=== PATIENT | female | born 1965 | race Caucasian/White ===

== ENCOUNTER 2018-01-26 09:11 | Outpatient (CLI) | payer OTHER ==
[2018-01-26 17:35] LABS: BASOPHILS % (AUTO) 0.6 %; EOSINOPHILS # (AUTO) 0.1 10^3/uL (0.0-0.7); EOSINOPHILS % (AUTO) 1.5 %; HGB - HEMOGLOBIN 8.8 g/dL (12.0-16.0); LYMPHOCYTES # (AUTO) 1.6 10^3/uL (1.5-3.5); LYMPHOCYTES % (AUTO) 29.9 %; MEAN CORPUSCULAR HEMOGLOBIN 19.6 pg (27.0-31.0); MEAN CORPUSCULAR HGB CONC 29.4 g/dL (32.0-36.0); MEAN CORPUSCULAR VOLUME 66.8 fL (81.0-99.0); MEAN PLATELET VOLUME 8.3 fL (7.9-10.8); MONOCYTES # (AUTO) 0.5 10^3/uL (0.0-1.0); MONOCYTES % (AUTO) 8.9 %; NEUTROPHILS # (AUTO) 3.2 10^3/uL (1.5-6.6); NEUTROPHILS % (AUTO) 59.1 %; PLT - PLATELET COUNT 351 10^3/uL (130-450); RED BLOOD COUNT 4.46 10^6/uL (4.20-5.40); RED CELL DISTRIBUTION WIDTH 19.1 % (12.0-15.0); WHITE BLOOD COUNT 5.4 x10^3/uL (4.8-10.8)
[2018-01-26 17:47] LABS: ALBUMIN 3.8 g/dL (3.2-5.5); ALBUMIN/GLOBULIN RATIO 1.4 (1.0-2.2); ALKALINE PHOSPHATASE 54 IU/L (42-121); ALT ALANINE AMINOTRANSFERASE 16 IU/L (10-60); AST ASPARTATE AMINOTRANSFERASE 17 IU/L (10-42); BILIRUBIN,TOTAL 1.1 mg/dL (0.2-1.0); BUN - BLOOD UREA NITROGEN 15 mg/dL (6-20); CALCIUM 8.5 mg/dL (8.5-10.3); CARBON DIOXIDE - CO2 26 mmol/L (21-32); CHLORIDE 107 mmol/L (101-111); CREATININE 0.6 mg/dL (0.4-1.0); GFR - MDRD 105 (>89); GLUCOSE 91 mg/dL (70-100); SODIUM 137 mmol/L (135-145); TOTAL PROTEIN 6.6 g/dL (6.7-8.2)
[2018-01-26 19:47] LABS: PLATELET ESTIMATE, MANUAL NORMAL (130-450,000) (NORMAL); PLATELET MORPHOLOGY 1+ GIANT PLATELETS (NORMAL)
== END 2018-01-26 09:12 | disposition home or self-care (01) ==
LOC: LAB.F 09:11
PROVIDERS: ATTEND Physician Assistant Medical
DX: Z00.00 Encounter for general adult medical examination without abnormal findings (principal)
CPT/HCPCS: 36415; 80053; 84443; 85025

== ENCOUNTER 2018-02-01 11:59 | Outpatient (CLI) | payer OTHER ==
[2018-02-01 17:40] LABS: % IRON SATURATION 2 % (20-50); IRON 8 ug/dL (28-170); TOTAL IRON BINDING CAPACITY 447 ug/dL (250-450); TRANSFERRIN 319 mg/dL (192-382)
== END 2018-02-01 12:00 | disposition home or self-care (01) ==
LOC: LAB.F 11:59
PROVIDERS: ATTEND Family Medicine
DX: D64.9 Anemia, unspecified (principal)
CPT/HCPCS: 36415; 81599; 82728; 83021; 83540; 84466; 85014; 85018

== ENCOUNTER 2018-03-10 14:51 | Outpatient (CLI) | payer OTHER ==
[2018-03-10 18:02] LABS: BASOPHILS % (AUTO) 0.5 %; EOSINOPHILS # (AUTO) 0.1 10^3/uL (0.0-0.7); EOSINOPHILS % (AUTO) 1.3 %; LYMPHOCYTES # (AUTO) 2.1 10^3/uL (1.5-3.5); MEAN CORPUSCULAR HEMOGLOBIN 19.2 pg (27.0-31.0); MEAN CORPUSCULAR HGB CONC 29.9 g/dL (32.0-36.0); MEAN CORPUSCULAR VOLUME 64.5 fL (81.0-99.0); MEAN PLATELET VOLUME 8.8 fL (7.9-10.8); MEAN RETIC VALUE 98.9; MONOCYTES # (AUTO) 0.6 10^3/uL (0.0-1.0); MONOCYTES % (AUTO) 7.9 %; NEUTROPHILS # (AUTO) 5.4 10^3/uL (1.5-6.6); NEUTROPHILS % (AUTO) 65.3 %; PLT - PLATELET COUNT 336 10^3/uL (130-450); RED BLOOD COUNT 4.69 10^6/uL (4.20-5.40); RED CELL DISTRIBUTION WIDTH 17.3 % (12.0-15.0); WHITE BLOOD COUNT 8.2 x10^3/uL (4.8-10.8)
[2018-03-10 18:28] LABS: % IRON SATURATION 3 % (20-50); IRON 12 ug/dL (28-170); TOTAL IRON BINDING CAPACITY 437 ug/dL (250-450); TRANSFERRIN 312 mg/dL (192-382)
[2018-03-10 18:45] LABS: FERRITIN 2.9 ng/mL (11.0-306.8)
[2018-03-10 18:48] LABS: FOLATE 13.04 ng/mL (5.90 - >24.8)
== END 2018-03-10 14:52 | disposition home or self-care (01) ==
LOC: LAB.F 14:51
PROVIDERS: ATTEND Internal Medicine
DX: D64.9 Anemia, unspecified (principal)
CPT/HCPCS: 36415; 82607; 82728; 82746; 82747; 83540; 84466; 85025; 85044

== ENCOUNTER 2018-04-07 11:40 | Outpatient (CLI) | payer OTHER ==
[2018-04-07 18:19] LABS: HGB - HEMOGLOBIN 12.1 g/dL (12.0-16.0); MEAN CORPUSCULAR HEMOGLOBIN 23.6 pg (27.0-31.0); MEAN CORPUSCULAR HGB CONC 30.6 g/dL (32.0-36.0); MEAN CORPUSCULAR VOLUME 77.3 fL (81.0-99.0); MEAN PLATELET VOLUME 9.1 fL (7.9-10.8); RED BLOOD COUNT 5.12 10^6/uL (4.20-5.40); RED CELL DISTRIBUTION WIDTH 29.6 % (12.0-15.0); WHITE BLOOD COUNT 7.5 x10^3/uL (4.8-10.8)
[2018-04-08 16:43] LABS: MEAN RETIC VALUE 110.8; RED BLOOD COUNT 5.14 10^6/uL (4.20-5.40)
== END 2018-04-07 11:41 | disposition home or self-care (01) ==
LOC: LAB.F 11:40
PROVIDERS: ATTEND Internal Medicine
DX: D50.9 Iron deficiency anemia, unspecified (principal)
CPT/HCPCS: 36415; 82728; 85027; 85044

== ENCOUNTER 2018-05-06 11:24 | Outpatient (CLI) | payer OTHER ==
[2018-05-06 18:59] LABS: BASOPHILS % (AUTO) 0.5 %; EOSINOPHILS # (AUTO) 0.1 10^3/uL (0.0-0.7); EOSINOPHILS % (AUTO) 1.1 %; HGB - HEMOGLOBIN 13.6 g/dL (12.0-16.0); LYMPHOCYTES # (AUTO) 1.5 10^3/uL (1.5-3.5); LYMPHOCYTES % (AUTO) 23.3 %; MEAN CORPUSCULAR HEMOGLOBIN 26.9 pg (27.0-31.0); MEAN CORPUSCULAR VOLUME 84.2 fL (81.0-99.0); MEAN PLATELET VOLUME 8.4 fL (7.9-10.8); MONOCYTES # (AUTO) 0.4 10^3/uL (0.0-1.0); MONOCYTES % (AUTO) 6.8 %; NEUTROPHILS # (AUTO) 4.4 10^3/uL (1.5-6.6); NEUTROPHILS % (AUTO) 68.3 %; PLT - PLATELET COUNT 255 10^3/uL (130-450); RED BLOOD COUNT 5.07 10^6/uL (4.20-5.40); RED CELL DISTRIBUTION WIDTH 25.2 % (12.0-15.0); WHITE BLOOD COUNT 6.5 x10^3/uL (4.8-10.8)
[2018-05-06 19:25] LABS: PLATELET ESTIMATE, MANUAL NORMAL (130-450,000) (NORMAL); PLATELET MORPHOLOGY NORMAL APPEARANCE (NORMAL); RBC MORPHOLOGY (MULTIPLE) NORMAL APPEARANCE (NORMAL)
== END 2018-05-06 11:25 | disposition home or self-care (01) ==
LOC: LAB.F 11:24
PROVIDERS: ATTEND Internal Medicine
DX: D50.9 Iron deficiency anemia, unspecified (principal)
CPT/HCPCS: 85025

== ENCOUNTER 2019-02-20 10:13 | Outpatient (CLI) | payer OTHER ==
[2019-02-20 11:04] LABS: HB2 TOTAL 12.8 g/dL; HEMOGLOBIN A1C 0.45 g/dL; HEMOGLOBIN A1C % 5.4 % (4.6-6.2)
[2019-02-20 11:09] LABS: % IRON SATURATION 4 % (20-50); ALBUMIN/GLOBULIN RATIO 1.5 (1.0-2.2); ALKALINE PHOSPHATASE 58 IU/L (42-121); ALT ALANINE AMINOTRANSFERASE 13 IU/L (10-60); AST ASPARTATE AMINOTRANSFERASE 15 IU/L (10-42); BILIRUBIN,TOTAL 1.5 mg/dL (0.2-1.0); BUN - BLOOD UREA NITROGEN 13 mg/dL (6-20); CALCIUM 8.7 mg/dL (8.5-10.3); CARBON DIOXIDE - CO2 27 mmol/L (21-32); CHLORIDE 104 mmol/L (101-111); CHOLESTEROL 198 mg/dL; CREATININE 0.6 mg/dL (0.4-1.0); GFR - MDRD 105 (>89); GLUCOSE 97 mg/dL (70-100); HDL CHOLESTEROL 49 mg/dL; IRON 16 ug/dL (28-170); LDL CHOLESTEROL,CALCULATED 138 mg/dL; LDL/HDL RATIO 2.8 (<4.4); SODIUM 139 mmol/L (135-145); TOTAL IRON BINDING CAPACITY 419 ug/dL (250-450); TOTAL PROTEIN 6.7 g/dL (6.7-8.2); TRANSFERRIN 299 mg/dL (192-382); VLDL CHOLESTEROL 11 mg/dL
== END 2019-02-20 10:14 | disposition home or self-care (01) ==
LOC: LAB 10:13
PROVIDERS: ATTEND Obstetrics & Gynecology
DX: Z13.1 Encounter for screening for diabetes mellitus (principal); Z13.220 Encounter for screening for lipoid disorders; Z12.11 Encounter for screening for malignant neoplasm of colon; D64.9 Anemia, unspecified; Z13.29 Encounter for screening for other suspected endocrine disorder
CPT/HCPCS: 36415; 80053; 80061; 83036; 83540; 83721; 84443; 84466

== ENCOUNTER 2019-02-27 09:50 | Outpatient (CLI) | payer OTHER | END 2019-02-27 23:59 | disposition home or self-care (01) | LOC: LAB.R 09:50 | PROVIDERS: ATTEND Obstetrics & Gynecology | DX: Z12.11 Encounter for screening for malignant neoplasm of colon (principal); Z13.1 Encounter for screening for diabetes mellitus; Z13.220 Encounter for screening for lipoid disorders | CPT/HCPCS: 82274 ==

== ENCOUNTER 2019-03-02 09:43 | Outpatient (CLI) | payer OTHER ==
[2019-03-02 17:16] LABS: HGB - HEMOGLOBIN 11.4 g/dL (12.0-16.0); MEAN CORPUSCULAR HEMOGLOBIN 24.5 pg (27.0-31.0); MEAN CORPUSCULAR VOLUME 78.9 fL (81.0-99.0); MEAN PLATELET VOLUME 9.2 fL (7.9-10.8); RED BLOOD COUNT 4.64 10^6/uL (4.20-5.40); RED CELL DISTRIBUTION WIDTH 14.9 % (12.0-15.0); WHITE BLOOD COUNT 6.8 x10^3/uL (4.8-10.8)
== END 2019-03-02 09:44 | disposition home or self-care (01) ==
LOC: LAB.F 09:43
PROVIDERS: ATTEND Obstetrics & Gynecology
DX: D64.9 Anemia, unspecified (principal)
CPT/HCPCS: 36415; 85027

== ENCOUNTER 2019-03-10 15:01 | Outpatient (CLI) | payer OTHER ==
--- NOTE | 2019-03-11 17:04 | Ultrasound Report ---
Reason: ABNORMAL UTERINE BLEEDING Procedure Date: 03/10/2019 Accession Number: [id number] / [id number] Procedure: US - Pelvic w/Transvaginal CPT Code: FULL RESULT: EXAM: PELVIC ULTRASOUND EXAM DATE: 03/10/2019 03:52 PM. CLINICAL HISTORY: Abnormal uterine bleeding. COMPARISON: None. TECHNIQUE: Realtime transabdominal pelvic scan performed to identify the uterus and adnexa and as an overview of other pelvic structures, followed by transvaginal scan to provide greater detail of the uterus and adnexa, with static image documentation. FINDINGS: Uterus: 14.6 x 6.7 x 8.7 cm, volume 448 cc. Anteverted position. Normal overall size and echotexture. Masses: 6.7 x 4.9 x 7.7 cm anterior uterine fundal transmural hypervascular fibroid. Fibroid results in posterior displacement of the endometrial canal. Endometrium: 29 mm. Thickened endometrium is noted. Heterogeneous focal avascular masslike region in the endometrium measuring 2.9 x 1.5 x 2.9 cm is noted. Cervix: No mass. Nabothian cyst and fluid in endometrial canal is noted. Right Ovary: 3.3 x 2.2 x 2.6 cm, volume 10 cc. Normal echotexture and blood flow. Visualization limited by bowel gas. Left Ovary: 3.5 x 2.5 x 3.1 cm, volume 13.8 cc. Normal echotexture and blood flow. 3.2 x 2 x 2.8 Cm complex left ovarian cyst with debris and mild peripheral flow. No mural nodules or thickened septations. Free Fluid: None. Other: None. IMPRESSION: 1. 7.7 cm transmural anterior uterine fibroid resulting in significant mass effect upon the subjacent endometrium. 2. Endometrium is thickened and heterogeneous. There is a masslike region in the endometrium measuring 2.9 x 1.5 x 2.9 cm. No internal vascularity is noted. Potentially, this could represent an endometrial polyp/mass , uterine fibroid or blood products. Recommend short interval followup to evaluate for persistence of findings. If findings persist, patient may benefit from sonohysterogram or endometrial sampling. 3. Mildly complex 3.2 cm debris-containing left ovarian cyst most compatible with a corpus luteum. Otherwise, both ovaries and adnexa are normal. RADIA
== END 2019-03-10 15:02 | disposition home or self-care (01) ==
LOC: DI 15:01
PROVIDERS: ATTEND Obstetrics & Gynecology
DX: D25.9 Leiomyoma of uterus, unspecified (principal); R93.89 Abnormal findings on diagnostic imaging of other specified body structures; N83.292 Other ovarian cyst, left side
CPT/HCPCS: 76830; 76856

== ENCOUNTER 2019-04-12 11:22 | Day surgery (SDC) | payer OTHER ==
[2019-04-12] MEDS ORDERED: LACTATED RINGERS 1,000 ML IV ONE ×3 (11:29→14:37)
[2019-04-12 11:51] LABS: HCG UR QUAL NEGATIVE
[2019-04-12] MEDS ORDERED: LIDOCAINE MPF 2%-EPI 1:200000 20 ML VIAL ONE (12:05)
--- NOTE | 2019-04-12 13:00 | ANESTHESIA ---
Pre-Anesthesia VS, & Labs - Diagnosis uterine mass - Procedure hysteroscopy Vital Signs: Temp Pulse Resp BP Pulse Ox 36.7 C 51 L 12 154/90 H 100 04/12/19 11:33 04/12/19 11:33 04/12/19 11:33 04/12/19 11:33 04/12/19 11:33 Height 5 ft 7 in Weight (kg) 82.1 kg - NPO >8 hours - Is Patient ?: No Home Medications and Allergies No Known Home Medications 09/25/14 Allergies/Adverse Reactions: Allergies Allergy/AdvReac Type Severity Reaction Status Date / Time amoxicillin [Amoxicillin] Allergy Intermediate Rash Verified 09/25/14 20:49 Anes History & Medical History - Anesthetic History Anesthesia Complications: reports: No previous complications - Medical History Cardiovascular: reports: None Pulmonary: reports: None Gastrointestinal: reports: None Urinary: reports: Kidney stones Musculoskeletal: reports: None Endocrine/Autoimmune: reports: None Skin: reports: Rosacea Smoking Status: Never smoker Exam General: Alert Dental: WNL Mouth Opening: Greater than 4 Fingerbreadths Mallampati classification: I Respiratory: Lungs clear Cardiovascular: Regular rate Mental/Cognitive Status: Alert/Oriented X3 Plan Anesthesia Type: General Consent for Procedure(s) Verified and Reviewed: Yes Code Status: Attempt Resuscitation ASA classification: 1-Healthy patient Is this case an emergency?: No
[2019-04-12] MEDS ORDERED: KETOROLAC 30 MG/ML VIAL IVP ONE (13:54)
[2019-04-12] MEDS ORDERED: DEXAMETHASONE 4 MG/ML VIAL IVP ONE (13:54)
[2019-04-12] MEDS ORDERED: PROPOFOL 200 MG/20 ML VIAL IVP ONE (13:54)
[2019-04-12] MEDS ORDERED: fentaNYL 250 MCG/5 ML VIAL IVP ONE (13:54)
[2019-04-12] MEDS ORDERED: ONDANSETRON 4 MG/2 ML VIAL IVP ONE (13:54)
[2019-04-12] MEDS ORDERED: MIDAZOLAM 2 MG/2 ML VIAL IVP ONE (13:54)
[2019-04-12] MEDS ORDERED: ONDANSETRON 4 MG/2 ML VIAL IVP PRN (14:57)
[2019-04-12] MEDS ORDERED: oxyCODONE 5 MG TABLET PO PRN (14:57)
[2019-04-12] MEDS ORDERED: HYDROmorphone 0.5 MG/0.5 ML SYRINGE IVP PRN (14:57)
[2019-04-12] MEDS ORDERED: ACETAMINOPHEN 160 MG/5 ML SUSP UDC PO PRN (14:57)
[2019-04-12] MEDS ORDERED: oxyCODONE 10 MG/0.5 ML SYRINGE PO PRN (14:57)
--- NOTE | 2019-04-12 15:03 | OPERATIVE REPORT ---
Operative Report - General Procedure Date: 04/12/19 Planned Procedure: Hysteroscopy D&C with possible polypectomy/myomectomy Pre-Op Diagnosis: Endometrial mass Procedure Performed: Hysteroscopy D&C and myomectomy/excision of cervical mass Post Op Diagnosis: Prolapsing fibroid - Procedure Note Primary Surgeon: Ciara Jain MD Anesthesia Technique: General LMA Pathology: Cervical/endometrial mass and uterine contents IV Fluids (mL): 1,000 (1000 cc NS fluid deficit) Estimated Blood Loss (mL): 100 Urine Output (mL): 0 (voided prior to procedure) Indications: Vaginal bleeding resulting in anemia with endometrial mass on ultrasound Findings: 4 cm fibroid prolapsing throught cervical os. Intrauterine polyp Complications: none
[2019-04-12 15:54] VITALS: BP 166/95
== END 2019-04-12 11:23 | disposition home or self-care (01) ==
LOC: SDS 11:22
PROVIDERS: ATTEND Obstetrics & Gynecology
PROC: 0UDB8ZZ Extraction of Endometrium, Via Natural or Artificial Opening Endoscopic (ICD-10-PCS; 2019-04-12)
PROC: 0UB98ZZ Excision of Uterus, Via Natural or Artificial Opening Endoscopic (ICD-10-PCS; principal; 2019-04-12 12:30)
DX: N93.9 Abnormal uterine and vaginal bleeding, unspecified (principal); D25.9 Leiomyoma of uterus, unspecified; N84.0 Polyp of corpus uteri
CPT/HCPCS: 58561; 81025; 87640; J3010; J7120

== ENCOUNTER 2019-06-05 09:21 | Outpatient (CLI) | payer OTHER ==
--- NOTE | 2019-06-06 14:07 | Ultrasound Report ---
Reason: VAGINAL DISCHARGE, UTERINE MASS Procedure Date: 06/05/2019 Accession Number: [id number] / [id number] Procedure: US - Pelvic w/Transvaginal CPT Code: FULL RESULT: EXAM: PELVIC ULTRASOUND EXAM DATE: 06/05/2019 09:49 AM. CLINICAL HISTORY: VAGINAL DISCHARGE, UTERINE MASS. COMPARISON: PELVIC W/TRANSVAGINAL 03/10/2019 3:17 PM. TECHNIQUE: Realtime transabdominal pelvic scan performed to identify the uterus and adnexa and as an overview of other pelvic structures, followed by transvaginal scan to provide greater detail of the uterus and adnexa, with static image documentation. FINDINGS: Uterus: 9.3 x 8.1 x 6.4 cm, volume 252.1 cc. Anteverted position. Normal overall size and echotexture. Masses: Fundal, intramural, 5.8 x 6.6 x 5.9 cm, previously 6.7 x 4.9 x 7.7 cm. Endometrium: 2 mm. Normal. Cervix: No nabothian cysts are identified. Right Ovary: 1.9 x 1.8 x 1.1 cm, volume 2 cc. No mass is identified. Flow is demonstrated. Left Ovary: 1.5 x 1.3 x 0.9 cm, volume 0.9 cc. No mass is identified. Flow is demonstrated. Free Fluid: None. Other: None. IMPRESSION: Interval decrease in size of the fundal uterine leiomyoma. RADIA
== END 2019-06-05 09:22 | disposition home or self-care (01) ==
LOC: DI 09:21
PROVIDERS: ATTEND Obstetrics & Gynecology
DX: D25.1 Intramural leiomyoma of uterus (principal); N89.8 Other specified noninflammatory disorders of vagina
CPT/HCPCS: 76830; 76856

== ENCOUNTER 2020-01-26 10:52 | Outpatient (CLI) | payer OTHER | END 2020-01-26 23:59 | disposition home or self-care (01) | LOC: LAB.R 10:52 | PROVIDERS: ATTEND Physician Assistant | DX: L08.9 Local infection of the skin and subcutaneous tissue, unspecified (principal); Z22.322 Carrier or suspected carrier of Methicillin resistant Staphylococcus aureus | CPT/HCPCS: 87077; 87081 ==

== ENCOUNTER 2021-06-02 16:30 | Outpatient (CLI) | payer OTHER | END 2021-06-02 16:31 | disposition home or self-care (01) | LOC: COV 16:30 | PROVIDERS: ATTEND Family Medicine | DX: Z20.822 Contact with and (suspected) exposure to COVID-19 (principal) ==

== ENCOUNTER 2021-06-10 16:59 | Outpatient (CLI) | payer OTHER | END 2021-06-10 17:00 | disposition home or self-care (01) | LOC: COV 16:59 | PROVIDERS: ATTEND Family Medicine | DX: U07.1 COVID-19 (principal) ==

== ENCOUNTER 2022-05-05 07:03 | Outpatient (CLI) | payer OTHER ==
[2022-05-05 14:34] LABS: BASOPHILS % (AUTO) 0.3 %; EOSINOPHILS # (AUTO) 0.2 10^3/uL (0.0-0.7); EOSINOPHILS % (AUTO) 2.8 %; HCT - HEMATOCRIT 49.8 % (37.0-47.0); HGB - HEMOGLOBIN 16.1 g/dL (12.0-16.0); LYMPHOCYTES # (AUTO) 1.9 10^3/uL (1.5-3.5); LYMPHOCYTES % (AUTO) 30.8 %; MEAN CORPUSCULAR HGB CONC 32.3 g/dL (32.0-36.0); MEAN CORPUSCULAR VOLUME 92.7 fL (81.0-99.0); MEAN PLATELET VOLUME 10.6 fL (7.9-10.8); MONOCYTES # (AUTO) 0.6 10^3/uL (0.0-1.0); MONOCYTES % (AUTO) 9.8 %; NEUTROPHILS # (AUTO) 3.4 10^3/uL (1.5-6.6); NEUTROPHILS % (AUTO) 56.1 %; PLT - PLATELET COUNT 256 10^3/uL (130-450); RED BLOOD COUNT 5.37 10^6/uL (4.20-5.40); RED CELL DISTRIBUTION WIDTH 13.2 % (12.0-15.0); WHITE BLOOD COUNT 6.1 x10^3/uL (4.8-10.8)
[2022-05-05 15:18] LABS: ALBUMIN 3.9 g/dL (3.2-5.5); ALBUMIN/GLOBULIN RATIO 1.2 (1.0-2.2); ALKALINE PHOSPHATASE 63 IU/L (42-121); ALT ALANINE AMINOTRANSFERASE 24 IU/L (10-60); AST ASPARTATE AMINOTRANSFERASE 20 IU/L (10-42); BILIRUBIN,TOTAL 2.1 mg/dL (0.2-1.0); BUN - BLOOD UREA NITROGEN 17 mg/dL (6-20); CALCIUM 8.9 mg/dL (8.5-10.3); CARBON DIOXIDE - CO2 27 mmol/L (21-32); CHLORIDE 102 mmol/L (101-111); CHOL/HDL RATIO 5.1 (<4.4); CHOLESTEROL 224 mg/dL; CREATININE 0.8 mg/dL (0.4-1.0); GFR - MDRD 74 (>89); GLUCOSE 97 mg/dL (70-100); HDL CHOLESTEROL 44 mg/dL; LDL CHOLESTEROL,CALCULATED 162 mg/dL; LDL/HDL RATIO 3.7 (<4.4); SODIUM 136 mmol/L (135-145); TOTAL PROTEIN 7.2 g/dL (6.7-8.2); TRIGLYCERIDES 91 mg/dL; VLDL CHOLESTEROL 18 mg/dL
== END 2022-05-05 07:04 | disposition home or self-care (01) ==
LOC: LAB.S 07:03
PROVIDERS: ATTEND Registered Nurse
DX: Z00.00 Encounter for general adult medical examination without abnormal findings (principal); I10 Essential (primary) hypertension; Z13.1 Encounter for screening for diabetes mellitus; Z13.29 Encounter for screening for other suspected endocrine disorder; Z13.220 Encounter for screening for lipoid disorders
CPT/HCPCS: 36415; 80053; 80061; 83721; 85025

== ENCOUNTER 2022-07-20 09:10 | Outpatient (CLI) | payer OTHER ==
[2022-07-20 14:26] LABS: BASOPHILS % (AUTO) 0.5 %; EOSINOPHILS # (AUTO) 0.2 10^3/uL (0.0-0.7); EOSINOPHILS % (AUTO) 4.4 %; HCT - HEMATOCRIT 48.6 % (37.0-47.0); HGB - HEMOGLOBIN 16.5 g/dL (12.0-16.0); LYMPHOCYTES # (AUTO) 1.2 10^3/uL (1.5-3.5); LYMPHOCYTES % (AUTO) 27.6 %; MEAN CORPUSCULAR HEMOGLOBIN 30.3 pg (27.0-31.0); MEAN CORPUSCULAR VOLUME 89.3 fL (81.0-99.0); MEAN PLATELET VOLUME 10.8 fL (7.9-10.8); MONOCYTES # (AUTO) 0.4 10^3/uL (0.0-1.0); MONOCYTES % (AUTO) 8.8 %; NEUTROPHILS # (AUTO) 2.5 10^3/uL (1.5-6.6); NEUTROPHILS % (AUTO) 58.5 %; PLT - PLATELET COUNT 223 10^3/uL (130-450); RED BLOOD COUNT 5.44 10^6/uL (4.20-5.40); WHITE BLOOD COUNT 4.3 x10^3/uL (4.8-10.8)
[2022-07-20 15:24] LABS: ALBUMIN/GLOBULIN RATIO 1.4 (1.0-2.2); BILIRUBIN,TOTAL 2.1 mg/dL (0.2-1.0); CALCIUM 9.3 mg/dL (8.5-10.3); CREATININE 0.8 mg/dL (0.4-1.0); POTASSIUM 3.9 mmol/L (3.5-5.0); TOTAL PROTEIN 6.8 g/dL (6.7-8.2)
[2022-07-20 15:38] LABS: THYROID STIMULATING HORMONE 1.78 uIU/mL (0.34-5.60)
== END 2022-07-20 09:11 | disposition home or self-care (01) ==
LOC: LAB.S 09:10
PROVIDERS: ATTEND Registered Nurse
DX: E80.6 Other disorders of bilirubin metabolism (principal); Z13.29 Encounter for screening for other suspected endocrine disorder
CPT/HCPCS: 36415; 80053; 84443; 85025

== ENCOUNTER 2023-01-27 08:50 | Outpatient (CLI) | payer OTHER ==
[2023-01-27 14:25] LABS: BASOPHILS % (AUTO) 0.4 %; BILIRUBIN,URINE NEGATIVE (NEGATIVE); EOSINOPHILS # (AUTO) 0.1 10^3/uL (0.0-0.7); EOSINOPHILS % (AUTO) 2.5 %; GLUCOSE, URINE (UA) NEGATIVE (NEGATIVE); HGB - HEMOGLOBIN 16.1 g/dL (12.0-16.0); KETONES,URINE (UA) NEGATIVE (NEGATIVE); LEUKOCYTE ESTERASE, URINE NEGATIVE (NEGATIVE); LYMPHOCYTES # (AUTO) 1.7 10^3/uL (1.5-3.5); LYMPHOCYTES % (AUTO) 31.9 %; MEAN CORPUSCULAR HEMOGLOBIN 29.2 pg (27.0-31.0); MEAN CORPUSCULAR HGB CONC 32.2 g/dL (32.0-36.0); MEAN CORPUSCULAR VOLUME 90.6 fL (81.0-99.0); MEAN PLATELET VOLUME 10.4 fL (7.9-10.8); MONOCYTES # (AUTO) 0.5 10^3/uL (0.0-1.0); MONOCYTES % (AUTO) 8.8 %; NEUTROPHILS # (AUTO) 2.9 10^3/uL (1.5-6.6); NEUTROPHILS % (AUTO) 56.2 %; NITRITE,URINE NEGATIVE (NEGATIVE); OCCULT BLOOD,URINE NEGATIVE (NEGATIVE); PH,URINE 6.5 PH (5.0-7.5); PLT - PLATELET COUNT 236 10^3/uL (130-450); PROTEIN,URINE NEGATIVE (NEGATIVE); RED BLOOD COUNT 5.52 10^6/uL (4.20-5.40); RED CELL DISTRIBUTION WIDTH 12.8 % (12.0-15.0); UROBILINOGEN,URINE 0.2 (NORMAL) E.U./dL (NORMAL); WHITE BLOOD COUNT 5.2 x10^3/uL (4.8-10.8)
[2023-01-27 14:28] LABS: CLARITY,URINE CLEAR (CLEAR)
[2023-01-27 14:37] LABS: WBC,URINE 0-3 /HPF (0-5)
[2023-01-27 14:38] LABS: BACTERIA,URINE Few /HPF (None Seen); RBC,URINE 0-5 /HPF (0-5); SQUAMOUS EPITHELIAL CELL,UR NONE SEEN (<= Few)
[2023-01-27 14:52] LABS: ALBUMIN 3.9 g/dL (3.2-5.5); ALBUMIN/GLOBULIN RATIO 1.3 (1.0-2.2); BILIRUBIN,DIRECT 0.2 mg/dL (0.1-0.5); CALCIUM 9.2 mg/dL (8.5-10.3); CREATININE 0.8 mg/dL (0.4-1.0); POTASSIUM 4.7 mmol/L (3.5-5.0)
[2023-01-28 15:09] LABS: OSMOLALITY 294 mOsmol/kg (275-295); OSMOLALITY URINE 296 mOsmol/kg (.)
== END 2023-01-27 08:51 | disposition home or self-care (01) ==
LOC: LAB.S 08:50
PROVIDERS: ATTEND Registered Nurse
DX: R82.90 Unspecified abnormal findings in urine (principal); E80.6 Other disorders of bilirubin metabolism; D75.1 Secondary polycythemia
CPT/HCPCS: 36415; 80053; 81001; 81005; 81599; 82248; 83930; 83935; 85025; 87086; 87181

== ENCOUNTER 2023-07-19 08:00 | Outpatient (CLI) | payer OTHER ==
[2023-07-19 16:16] LABS: BILIRUBIN,URINE NEGATIVE (NEGATIVE); GLUCOSE, URINE (UA) NEGATIVE (NEGATIVE); KETONES,URINE (UA) NEGATIVE (NEGATIVE); LEUKOCYTE ESTERASE, URINE NEGATIVE (NEGATIVE); NITRITE,URINE NEGATIVE (NEGATIVE); OCCULT BLOOD,URINE NEGATIVE (NEGATIVE); PH,URINE 6.5 PH (5.0-7.5); PROTEIN,URINE NEGATIVE (NEGATIVE); UROBILINOGEN,URINE 0.2 (NORMAL) E.U./dL (NORMAL)
[2023-07-19 16:21] LABS: CLARITY,URINE CLEAR (CLEAR)
[2023-07-19 16:26] LABS: BACTERIA,URINE Moderate /HPF (None Seen); RBC,URINE None Seen /HPF (0-5); SQUAMOUS EPITHELIAL CELL,UR NONE SEEN (<= Few); WBC,URINE 0-3 /HPF (0-5)
== END 2023-07-19 23:59 | disposition home or self-care (01) ==
LOC: LAB.WC 08:00
PROVIDERS: ATTEND Nurse Practitioner
DX: R82.90 Unspecified abnormal findings in urine (principal)
CPT/HCPCS: 81001; 87086; 87181

== ENCOUNTER 2023-09-09 15:10 | Outpatient (CLI) | payer OTHER ==
--- NOTE | 2023-09-09 16:17 | Ultrasound Report ---
PROCEDURE: Pelvic w/Transvaginal INDICATIONS: POSTMENOPAUSAL BLEEDING TECHNIQUE: Real-time scanning was performed of the pelvic organs, with image documentation. Additional endovagi nal scanning was necessary due to incomplete visualization of the adnexal and endometrial structures by transabdominal scanning. COMPARISON: Pelvic ultrasound, 06/05/2019. FINDINGS: Uterus: Uterus is anteverted and normal in size at 10.2 x 5.8 x 6.3 cm. The myometrium is heterogen eous. The endometrium is not visualized. There is a large intramural fibroid in the anterior uterin e wall at midline measuring 5.8 x 5.4 x 6.5 cm; previously 5.8 x 6.6 x 5.9 cm. Ovaries: The right ovary measures 1.1 x 1.8 x 1.0 cm. The left ovary is not visualized. The ovarie s have a normal sonographic appearance. Other: No pathologic free abdominal or pelvic fluid. IMPRESSION: 1. Enlarged uterus with a large uterine leiomyoma, minimal change in size since the last exam. 2. Endometrium is not visualized. In this patient with postmenopausal bleeding, consider gynecologica l MRI for further evaluation. 3. Normal appearance of right ovary. 4. Left ovary not visualized. Reviewed by: Parish Jones MD on 09/09/2023 4:16 PM PST Approved by: Parish Jones MD on 09/09/2023 4:16 PM PST Station ID: [id number]
== END 2023-09-09 15:11 | disposition home or self-care (01) ==
LOC: DI 15:10
PROVIDERS: ATTEND Nurse Practitioner
DX: N95.0 Postmenopausal bleeding (principal); D25.1 Intramural leiomyoma of uterus

== ENCOUNTER 2023-11-08 08:00 | Outpatient (CLI) | payer OTHER ==
[2023-11-08 15:51] LABS: BILIRUBIN,URINE NEGATIVE (NEGATIVE); GLUCOSE, URINE (UA) NEGATIVE (NEGATIVE); KETONES,URINE (UA) NEGATIVE (NEGATIVE); LEUKOCYTE ESTERASE, URINE NEGATIVE (NEGATIVE); NITRITE,URINE NEGATIVE (NEGATIVE); OCCULT BLOOD,URINE NEGATIVE (NEGATIVE); PROTEIN,URINE NEGATIVE (NEGATIVE); UROBILINOGEN,URINE 0.2 (NORMAL) E.U./dL (NORMAL)
[2023-11-08 16:06] LABS: BACTERIA,URINE Rare /HPF (None Seen); CLARITY,URINE CLEAR (CLEAR); RBC,URINE 0-5 /HPF (0-5); SQUAMOUS EPITHELIAL CELL,UR FEW Squamous (<= Few); WBC,URINE 0-3 /HPF (0-5)
== END 2023-11-08 23:59 | disposition home or self-care (01) ==
LOC: LAB.WC 08:00
PROVIDERS: ATTEND Nurse Practitioner
DX: R82.90 Unspecified abnormal findings in urine (principal)
CPT/HCPCS: 81001; 87086